=== PATIENT | female | born 1965 | race Caucasian/White ===

== ENCOUNTER → 2017-01-22 | Outpatient (CLI) | payer BC ==
--- NOTE | 2017-01-23 12:19 | MM ---
Reason for exam: screening (asymptomatic). Last mammogram was performed 6 years ago. History: Took hormonal contraceptives for 2 years. Physical Findings: A clinical breast exam by your physician is recommended on an annual basis and results should be correlated with mammographic findings. MG Screening Mammo w CAD Bilateral CC and MLO view(s) were taken. Prior study comparison: January 12, 2011, CAD bilateral diagnostic mammogram. The breast tissue is heterogeneously dense. This may lower the sensitivity of mammography. Benign calcifications bilaterally. No significant changes when compared with prior studies. ASSESSMENT: Benign, BI-RAD 2 RECOMMENDATION: Routine screening mammogram of both breasts in 1 year.
== END | disposition home or self-care (01) ==
LOC: RADMAMWWP 11:44
PROVIDERS: ATTEND Family Medicine
DX: Z12.31 Encounter for screening mammogram for malignant neoplasm of breast (principal); Z12.4 Encounter for screening for malignant neoplasm of cervix

== ENCOUNTER → 2017-01-26 | Outpatient (CLI) | payer BC ==
--- NOTE | 2017-01-26 09:28 | MR ---
EXAMINATION TYPE: MR lumbar spine wo con DATE OF EXAM: 01/26/2017 COMPARISON: 11/05/2013 HISTORY: 51-year-old female with pain in low back, buttocks, and left leg TECHNIQUE: Multiplanar, multisequence images of the lumbar spine were acquired. FINDINGS: There has been progression of multilevel degenerative disc disease as compared to 2013. There is grea ter degree of desiccation, disc space narrowing, and bulging disks throughout now with vacuum phenome non at multiple levels. There is associated severe edematous Modic type I endplate change particularly towards the right at L 2-L3 also new in the interval. A fatty matrix hemangioma within L2 vertebral body is stable. Mild het erogeneous marrow signal but otherwise without suspicious bone marrow replacement. Hypertrophic facet arthropathy also appears progressed from prior exam, greater towards the left. Mul tilevel ligamentum flavum thickening and progressive grade 1 retrolisthesis at L2-L3 with new grade 1 retrolisthesis at L1-L2. Conus medullaris is normal. Vertebral body heights are preserved. No prevertebral or paravertebral soft tissue abnormality seen. At T12-L1, no spinal canal or neuroforaminal stenosis. At L1-L2, there is diffuse disc bulge with facet arthropathy, new trace grade 1 retrolisthesis, and d iffuse disc bulge. There is slight impression on the ventral thecal sac but no significant spinal can al and neural foraminal stenosis. At L2-L3, there is slight increased grade 1 retrolisthesis with increasing diffuse disc bulge. Contin ued facet arthropathy and increased mild spinal canal stenosis. Disc material may impinge the lizeth ing left L3 nerve root. There is [id number] right neuroforaminal stenosis. At L3-L4, progressive degenerative disc disease with bulging disc, ligamentum flavum thickening, face t arthropathy, and prominent dorsal epidural fat. Changes result in moderate spinal canal stenosis wi th prominent abutment of the traversing left L4 nerve root. There is mild right greater than left samira roforaminal stenosis. However, disc material may abut the exiting right L3 nerve root. At L4-L5, diffuse disc bulge with ligamentum flavum thickening and facet arthropathy. There is increa sed mild spinal canal stenosis and similar mild left neuroforaminal stenosis. Disc material closely a pproaches and may abut the traversing left L5 nerve root. At L5-S1, diffuse disc bulge with hypertrophic facet arthropathy. No spinal canal stenosis. There is slight increased mild to moderate left neuroforaminal stenosis. IMPRESSION: 1. Progressive now moderate to advanced multilevel disc/endplate degenerative change as well as hyper trophic facet arthropathy. 2. There is new edematous Modic type I endplate change at L2-L3 with slight increased grade 1 retroli sthesis at this level and new grade 1 retrolisthesis at L1-L2. 3. Changes result in increased, now moderate, spinal canal stenosis at L3-L4 and mild at both L2-L3 a nd L4-L5. 4. Disc material at L2-L3, L3-L4, and L4-L5 closely approaches and may abut/impinge the traversing L3 , L4, and L5 nerve roots at their respective levels. 5. While there is only mild right neuroforaminal stenosis at L3-L4, disc material may contact the exi ting right L3 nerve root.
== END | disposition home or self-care (01) ==
LOC: RADMRIMAIN 08:07
PROVIDERS: ATTEND Nurse Practitioner Acute Care
DX: M48.06 Spinal stenosis, lumbar region (principal); M99.73 Connective tissue and disc stenosis of intervertebral foramina of lumbar region; M43.16 Spondylolisthesis, lumbar region; M47.816 Spondylosis without myelopathy or radiculopathy, lumbar region; M46.06 Spinal enthesopathy, lumbar region; Z88.2 Allergy status to sulfonamides
CPT/HCPCS: 72148

== ENCOUNTER → 2018-09-11 | Outpatient (CLI) | payer BC ==
--- NOTE | 2018-09-15 07:25 | MM ---
Reason for exam: screening (asymptomatic). Last mammogram was performed 1 year and 8 months ago. History: Took hormonal contraceptives for 2 years. Physical Findings: A clinical breast exam by your physician is recommended on an annual basis and results should be correlated with mammographic findings. MG Screening Mammo w CAD Bilateral CC and MLO view(s) were taken. Prior study comparison: January 22, 2017, bilateral MG screening mammo w CAD. January 12, 2011, CAD bilateral diagnostic mammogram. The breast tissue is heterogeneously dense. This may lower the sensitivity of mammography. There is a right upper outer quadrant mass at anterior middle depth with circumscribed boarders measuring 5mm. ASSESSMENT: Incomplete: need additional imaging evaluation, BI-RAD 0 RECOMMENDATION: Ultrasound of the right breast. (upper outer quadrant) [facility] will attempt to contact patient to return for ultrasound.
== END | disposition home or self-care (01) ==
LOC: RADMAMWWP 07:59
PROVIDERS: ATTEND Family Medicine
DX: Z12.31 Encounter for screening mammogram for malignant neoplasm of breast (principal)
CPT/HCPCS: 77067

== ENCOUNTER → 2018-09-18 | Outpatient (CLI) | payer BC ==
--- NOTE | 2018-09-18 16:42 | US ---
EXAMINATION TYPE: US pelvis complete transvag DATE OF EXAM: 09/18/2018 COMPARISON: NONE CLINICAL HISTORY: N94.1 Dyspareunia. TECHNIQUE: . Transabdominal sonographic images of the pelvis were acquired. Transvaginal sonographi c images were medically necessary to better assess the following anatomy: adnexa and endometrium Date of LMP: 5 years ago EXAM MEASUREMENTS: Uterus: 6.1 x 2.8 x2.1 cm Endometrial Stripe: 0.5 cm Right Ovary: 2.2 x 1.9 x 1.5 cm Left Ovary: Obscured by overlying bowel gas 1. Uterus: Anteverted hypoechoic area cervix 0.4 x 0.3 x 0.2 cm 2. Endometrium: wnl 3. Right Ovary: wnl lots of bowel loops 4. Left Ovary: Obscured by overlying bowel gas 5. Bilateral Adnexa: Obscured by overlying bowel gas 6. Posterior cul-de-sac: wnl IMPRESSION: Exam is limited. No significant abnormalities evident.
--- NOTE | 2018-09-19 09:27 | USB ---
Reason for exam: additional evaluation requested from abnormal screening. History: Took hormonal contraceptives for 2 years. Physical Findings: Nurse did not find any significant physical abnormalities on exam. US Breast Workup Limited RT Right limited breast ultrasound including focal area of concern, retroareolar and axilla demonstrates a 0.5 x 0.4 x 0.6cm mixed lesion at 10 o'clock. These results were verbally communicated with the patient and result sheet given to the patient on 09/18/18. ASSESSMENT: Suspicious, BI-RAD 4 RECOMMENDATION: Ultrasound core biopsy of the right breast. Called Dr. Dockery with mammographic findings and has scheduled an appointment for the patient for 11/05/18 at 1:[address] Frazier. Biopsy scheduled for 10/01/18 at 8:00. PRELIMINARY REPORT CALLED AND FAXED TO DR. FRAZIER ON 09/19/18.
== END ==
LOC: RADUSWWP 14:53
PROVIDERS: ATTEND Family Medicine
DX: R92.8 Other abnormal and inconclusive findings on diagnostic imaging of breast (principal); N94.10 Unspecified dyspareunia
CPT/HCPCS: 76830; 76856

== ENCOUNTER → 2018-10-01 | Day surgery (SDC) | payer BC ==
[2018-10-01 07:17] VITALS: RESP 16; BMI 22.7
[2018-10-01 09:20] VITALS: BP 124/75; PULSE 65; TEMP 97.7
--- NOTE | 2018-10-01 16:57 | USB ---
EXAMINATION TYPE: US biopsy breast VAD RT DATE OF EXAM: 10/01/2018 CLINICAL HISTORY: R92.8 ABN Mammogram. TECHNIQUE: Ultrasound guided core biopsy of right breast. COMPARISON: NONE FINDINGS: The procedure of ultrasound guided core biopsy was explained to the patient. Benefits, alternatives, and risks were discussed. An informed consent was then obtained. Timeout was performed. The patient was placed in supine positioning for imaging and for the procedure. The overlying skin was prepped and draped in usual sterile fashion. Lidocaine buffered with bicarbonate was used as anesthetic into the skin and subcutaneous tissue up to area of concern in the right breast. A bianka was made with surgical scalpel. Under ultrasound guidance, a 12-gauge vacuum assisted biopsy gun device was used to obtain 5 core samples. Following this, a biopsy clip was left at the site of the lesion. Lesion had a more cystic appearance on the current examination on the second cut appeared to spontaneously decompressed. The patient tolerated the procedure well without any immediate complication. The patient was kept in the radiology department for short stay after the procedure and then discharged home in stable condition. Postprocedure mammogram was obtained. A core marker is in place within the right breast. IMPRESSION: 1. Successful ultrasound-guided core biopsy of suspected complex cyst. Recommendations: 1. Recommendations are pending pathology results. Pathology Results: Benign RIGHT BREAST, TEN O'CLOCK, ULTRASOUND GUIDED CORE BIOPSY: Fat necrosis with associated calcifications, histiocytes, inflammation and fibrosis. Background fibrocystic changes. Negative for malignancy. Recommendation Follow up mammogram of the right breast in 6 months. REJI
--- NOTE | 2018-10-01 16:58 | MM ---
EXAMINATION TYPE: US biopsy breast VAD RT DATE OF EXAM: 10/01/2018 CLINICAL HISTORY: R92.8 ABN Mammogram. TECHNIQUE: Ultrasound guided core biopsy of right breast. COMPARISON: NONE FINDINGS: The procedure of ultrasound guided core biopsy was explained to the patient. Benefits, alt ernatives, and risks were discussed. An informed consent was then obtained. Timeout was performed. The patient was placed in supine positioning for imaging and for the procedure. The overlying skin w as prepped and draped in usual sterile fashion. Lidocaine buffered with bicarbonate was used as anes thetic into the skin and subcutaneous tissue up to area of concern in the right breast. A bianka was m ana rosa with surgical scalpel. Under ultrasound guidance, a 12-gauge vacuum assisted biopsy gun device was used to obtain 5 core ion ples. Following this, a biopsy clip was left at the site of the lesion. Lesion had a more cystic aleksandra earance on the current examination on the second cut appeared to spontaneously decompressed. The patient tolerated the procedure well without any immediate complication. The patient was kept in the radiology department for short stay after the procedure and then discharged home in stable condi tion. Postprocedure mammogram was obtained. A core marker is in place within the right breast. IMPRESSION: 1. Successful ultrasound-guided core biopsy of suspected complex cyst. Recommendations: 1. Recommendations are pending pathology results.
== END | disposition home or self-care (01) ==
LOC: RADUSWWP 07:02
PROVIDERS: ATTEND Surgery
DX: N60.31 Fibrosclerosis of right breast (principal)
CPT/HCPCS: 88305; 77065; 19083; A4648; J2001

== ENCOUNTER → 2018-10-16 | Outpatient (CLI) | payer BC ==
[2018-10-16 14:16] LABS: Basophils % (A) 0 %; Eosinophils # (A) 0.1 k/uL (0-0.7); Eosinophils % (A) 2 %; HCT 40.5 % (34.0-46.0); HGB 13.1 gm/dL (11.4-16.0); Lymphocytes # (A) 2.8 k/uL (1.0-4.8); Lymphocytes % (A) 54 %; MCH 30.6 pg (25.0-35.0); MCHC 32.4 g/dL (31.0-37.0); MCV 94.7 fL (80.0-100.0); Mean Platelet Volume 6.7; Monocytes # (A) 0.2 k/uL (0-1.0); Monocytes % (A) 4 %; Neutrophils # (A) 1.9 k/uL (1.3-7.7); Neutrophils % (A) 37 %; Platelet Count 215 k/uL (150-450); RBC 4.28 m/uL (3.80-5.40); RDW 12.7 % (11.5-15.5); WBC 5.1 k/uL (3.8-10.6)
[2018-10-16 19:37] LABS: Erythrocyte Sedimentation Rate 13 mm/hr (0-20)
== END | disposition home or self-care (01) ==
LOC: LABWHC1 13:34
PROVIDERS: ATTEND Psychiatry & Neurology Neurology
DX: M46.40 Discitis, unspecified, site unspecified (principal)
CPT/HCPCS: 36415; 85025; 85652; 86140

== ENCOUNTER → 2021-04-10 | Outpatient (CLI) | payer MEDICARE, OTHER | END | disposition home or self-care (01) | LOC: LABWHC1 13:05 | PROVIDERS: ATTEND Psychiatry & Neurology Neurology | DX: Z01.812 Encounter for preprocedural laboratory examination (principal); Z20.822 Contact with and (suspected) exposure to COVID-19 | CPT/HCPCS: U0003; C9803; U0005 ==

== ENCOUNTER 2023-04-02 23:38 | Observation (INO) | payer MEDICARE, OTHER ==
[2023-04-03] MEDS ORDERED: ASPIRIN 81 MG PO STA (00:29)
--- NOTE | 2023-04-03 00:30 | ED ---
General Adult HPI - General Chief complaint: Chest Pain Stated complaint: SOB, Heart Palpitations Time Seen by Provider: 04/02/23 23:49 Source: patient Mode of arrival: ambulatory Limitations: no limitations - History of Present Illness Initial comments: Dictation was produced using [employer] dictation software. please excuse any grammatical, word or spelling errors. Chief Complaint: 58-year-old female presents with chest pain shortness breath and palpitations History of Present Illness: Patient is a 58-year-old female she has no history of cardiac disease presents to the ER for several hours of chest pressure, shortness of breath and heart palpitations. She has no history of cardiac disease. She does however have family history of cardiac disease. She currently uses tobacco. States that her pain as a pressure to the substernal area. Nonradiating. No associated diaphoresis or nausea.. She reports that most of her symptoms resolved except for some mild chest pressure that is present during initial evaluation at the bedside. The ROS documented in this emergency department record has been reviewed and confirmed by me. Those systems with pertinent positive or negative responses have been documented in the HPI. All other systems are other negative and/or noncontributory. - Related Data Home Medications Medication Instructions Recorded Confirmed HYDROcodone/APAP 10-325MG [Holden 1 tab PO BID PRN 09/26/18 10/01/18 10-325] tiZANidine HCL [Zanaflex] 4 mg PO BID 10/01/18 10/01/18 Allergies Allergy/AdvReac Type Severity Reaction Status Date / Time No Known Allergies Allergy Verified 10/01/18 07:10 Review of Systems ROS Statement: Those systems with pertinent positive or pertinent negative responses have been documented in the HPI. ROS Other: All systems not noted in ROS Statement are negative. Past Medical History Past Medical History: No Reported History Additional Past Medical History / Comment(s): Chronic back pain, herniated discs History of Any Multi-Drug Resistant Organisms: None Reported Past Surgical History: Section, Orthopedic Surgery, Tonsillectomy, Tubal Ligation Additional Past Surgical History / Comment(s): Arthroscopic left shoulder surgery Past Anesthesia/Blood Transfusion Reactions: No Reported Reaction Past Psychological History: No Psychological Hx Reported Smoking Status: Current every day smoker Past Alcohol Use History: Rare Past Drug Use History: Marijuana General Exam - General Exam Comments Initial Comments: PHYSICAL EXAM: General Impression: Alert and oriented x3, not in acute distress HEENT: Normocephalic atraumatic, extra-ocular movements intact, pupils equal and reactive to light bilaterally, mucous membranes moist. Cardiovascular: Heart regular rate and rhythm Chest: Able to complete full sentences, no retractions, no tachypnea Abdomen: abdomen soft, non-tender, non-distended, no organomegaly Musculoskeletal: Pulses present and equal in all extremities, no peripheral edema Motor: no focal deficits noted Neurological: CN II-XII grossly intact, no focal motor or sensory deficits noted Skin: Intact with no visualized rashes Psych: Normal affect and mood Limitations: no limitations Course Vital Signs 04/02/23 04/03/23 04/03/23 23:40 00:30 01:00 Temperature 98.0 F Pulse Rate 114 H 79 78 Respiratory 16 18 16 Rate Blood Pressure 126/63 115/68 113/57 O2 Sat by Pulse 96 94 L 96 Oximetry 04/03/23 03:50 Temperature Pulse Rate 62 Respiratory 18 Rate Blood Pressure 100/69 O2 Sat by Pulse 96 Oximetry EKG Findings - EKG Comments: EKG Findings:: My EKG interpretation: Ventricular rate 97, sinus rhythm,. 164, QRS 72, QTC 402. No MA prolongation, no QTC prolongation, no ST or T-wave changes noted. Overall, this EKG is unremarkable Medical Decision Making - Medical Decision Making Was pt. sent in by a medical professional or institution (, PA, TREATING MACHINE OPERATOR, urgent care, hospital, or long term...) When possible be specific @ -No Did you speak to anyone other than the patient for history (EMS, parent, family, police, friend...)? What history was obtained from this source @ -No Did you review nursing and triage notes (agree or disagree)? Why? @ -I reviewed and agree with nursing and triage notes Were old charts reviewed (outside hosp., previous admission, EMS record, old EKG, old radiological studies, urgent care reports/EKG's, long term records)? Report findings @ -No old charts were reviewed Differential Diagnosis (chest pain, altered mental status, abdominal pain women, abdominal pain men, vaginal bleeding, musculoskeletal, weakness, fever, dyspnea, syncope, headache, dizziness, GI bleed, back pain, seizure, CVA, palpatations, mental health)? @ -Differential Chest Pain: Stable Angina, Unstable Angina, STEMI, NSTEMI Aortic Dissection, Pneumothorax, Musculoskeletal, Esophageal Spasm GERD, Cholecystitis, Pancreatitis, Zoster, this is not meant to be an all-inclusive list. EKG interpreted by me (3pts min.). @ -See above X-rays interpreted by me (1pt min.). @ -see above CT interpreted by me (1pt min.). @ -CT angiography of the chest shows No pulmonary embolism U/S interpreted by me (1pt. min.). @ -None done What testing was considered but not performed or refused? (CT, X-rays, U/S, labs)? Why? @ -None What meds were considered but not given or refused? Why? @ -None Did you discuss the management of the patient with other professionals (professionals i.e. , PA, TREATING MACHINE OPERATOR, lab, RT, psych nurse, social services analyst, acquisition professional, teacher, radio officer, nurse case management)? Give summary @ -Case discussed with hospitalist for admission Was smoking cessation discussed for >3mins.? @ -No Was critical care preformed (if so, how long)? @ -yes, 33 minutes Were there social determinants of health that impacted care today? How? (Homelessness, low income, unemployed, alcoholism, drug addiction, transportation, low edu. Level, literacy, decrease access to med. care, nursing home, rehab)? @ -No Was there de-escalation of care discussed even if they declined (Discuss DNR or withdrawal of care, Hospice)? DNR status @ -No What co-morbidities impacted this encounter? (DM, HTN, Smoking, COPD, CAD, Cancer, CVA, ARF, Chemo, Hep., AIDS, mental health diagnosis, sleep apnea, morbid obesity)? @ -None Was patient admitted / discharged? Hospital course, mention meds given and route, prescriptions, significant lab abnormalities, going to OR and other pertinent info. @ -Year-old female presents to the emergency department for chest pain. Symptoms are concerning for acute coronary syndrome. Vital signs upon arrival are within acceptable limits. Patient reports that her symptoms are improving. EKG is unremarkable. Troponin slightly elevated 0.024. Clinical presentation concerning for ACS. D-dimer is elevated 0.95. No large vessel pulmonary embolism. Patient aspirin and started on heparin. Undiagnosed new problem with uncertain prognosis? @ -No Drug Therapy requiring intensive monitoring for toxicity (Heparin, Nitro, Insuli n, Cardizem)? @ -No Were any procedures done? @ -No Diagnosis/symptom? Acute, or Chronic, or Acute on Chronic? Uncomplicated (without systemic symptoms) or Complicated (systemic symptoms)? @ -Acute coronary syndrome Side effects of treatment? @ -No Exacerbation, Progression, or Severe Exacerbation? @ -No Poses a threat to life or bodily function? How? (Chest pain, [place], [place], pneumonia, PE, COPD, DKA, ARF, appy, cholecystitis, CVA, Diverticulitis, Homicidal, Suicidal, threat to staff... and all critical care pts) @ -yes - Lab Data Result diagrams: 04/03/23 00:14 04/03/23 00:14 Lab Results 04/03/23 04/03/23 04/03/23 Range/Units 00:14 00:14 00:14 WBC 6.1 (3.8-10.6) k/uL RBC 4.31 (3.80-5.40) m/uL Hgb 13.3 (11.4-16.0) gm/dL Hct 40.6 (34.0-46.0) % MCV 94.1 (80.0-100.0) fL MCH 30.8 (25.0-35.0) pg MCHC 32.8 (31.0-37.0) g/dL RDW 12.2 (11.5-15.5) % Plt Count 185 (150-450) k/uL MPV 8.2 Neutrophils % 41 % Lymphocytes % 49 % Monocytes % 6 % Eosinophils % 2 % Basophils % 0 % Neutrophils # 2.5 (1.3-7.7) k/uL Lymphocytes # 3.0 (1.0-4.8) k/uL Monocytes # 0.3 (0-1.0) k/uL Eosinophils # 0.1 (0-0.7) k/uL Basophils # 0.0 (0-0.2) k/uL PT 10.4 (10.0-12.5) sec INR 0.9 (<1.2) APTT 23.5 (22.0-30.0) sec D-Dimer 0.95 H (<0.60) mg/L FEU Sodium 137 (137-145) mmol/L Potassium 4.6 (3.5-5.1) mmol/L Chloride 102 (98-107) mmol/L Carbon Dioxide 25 (22-30) mmol/L Anion Gap 10 mmol/L BUN 18 H (7-17) mg/dL Creatinine 0.63 (0.52-1.04) mg/dL Est GFR (CKD-EPI)AfAm >90 (>60 ml/min/1.73 sqM) Est GFR (CKD-EPI)NonAf >90 (>60 ml/min/1.73 sqM) Glucose 110 H (74-99) mg/dL Calcium 9.1 (8.4-10.2) mg/dL Total Bilirubin 1.0 (0.2-1.3) mg/dL AST 43 H (14-36) U/L ALT 26 (4-34) U/L Alkaline Phosphatase 54 (38-126) U/L Troponin I (0.000-0.034) ng/mL NT-Pro-B Natriuret Pep 24 pg/mL Total Protein 7.5 (6.3-8.2) g/dL Albumin 4.5 (3.5-5.0) g/dL TSH 1.480 (0.465-4.680) mIU/L 04/03/23 Range/Units 00:14 WBC (3.8-10.6) k/uL RBC (3.80-5.40) m/uL Hgb (11.4-16.0) gm/dL Hct (34.0-46.0) % MCV (80.0-100.0) fL MCH (25.0-35.0) pg MCHC (31.0-37.0) g/dL RDW (11.5-15.5) % Plt Count (150-450) k/uL MPV Neutrophils % % Lymphocytes % % Monocytes % % Eosinophils % % Basophils % % Neutrophils # (1.3-7.7) k/uL Lymphocytes # (1.0-4.8) k/uL Monocytes # (0-1.0) k/uL Eosinophils # (0-0.7) k/uL Basophils # (0-0.2) k/uL PT (10.0-12.5) sec INR (<1.2) APTT (22.0-30.0) sec D-Dimer (<0.60) mg/L FEU Sodium (137-145) mmol/L Potassium (3.5-5.1) mmol/L Chloride (98-107) mmol/L Carbon Dioxide (22-30) mmol/L Anion Gap mmol/L BUN (7-17) mg/dL Creatinine (0.52-1.04) mg/dL Est GFR (CKD-EPI)AfAm (>60 ml/min/1.73 sqM) Est GFR (CKD-EPI)NonAf (>60 ml/min/1.73 sqM) Glucose (74-99) mg/dL Calcium (8.4-10.2) mg/dL Total Bilirubin (0.2-1.3) mg/dL AST (14-36) U/L ALT (4-34) U/L Alkaline Phosphatase (38-126) U/L Troponin I 0.024 (0.000-0.034) ng/mL NT-Pro-B Natriuret Pep pg/mL Total Protein (6.3-8.2) g/dL Albumin (3.5-5.0) g/dL TSH (0.465-4.680) mIU/L Disposition Clinical Impression: ACS (acute coronary syndrome) Disposition: ADMITTED IP TO THIS HOSP Condition: Serious Decision Time: 03:45
[2023-04-03 01:15] LABS: Basophils % (A) 0 %; Eosinophils # (A) 0.1 k/uL (0-0.7); Eosinophils % (A) 2 %; HCT 40.6 % (34.0-46.0); HGB 13.3 gm/dL (11.4-16.0); Lymphocytes % (A) 49 %; MCH 30.8 pg (25.0-35.0); MCHC 32.8 g/dL (31.0-37.0); MCV 94.1 fL (80.0-100.0); Mean Platelet Volume 8.2; Monocytes # (A) 0.3 k/uL (0-1.0); Monocytes % (A) 6 %; Neutrophils # (A) 2.5 k/uL (1.3-7.7); Neutrophils % (A) 41 %; Platelet Count 185 k/uL (150-450); RBC 4.31 m/uL (3.80-5.40); RDW 12.2 % (11.5-15.5); WBC 6.1 k/uL (3.8-10.6)
[2023-04-03 01:30] LABS: ALT 26 U/L (4-34); African American GFR (CKD) >90 (>60 ml/min/1.73 sqM); Anion Gap 10 mmol/L; Blood Urea Nitrogen 18 mg/dL (7-17); Calcium 9.1 mg/dL (8.4-10.2); Carbon Dioxide 25 mmol/L (22-30); Chloride 102 mmol/L (98-107); Glucose 110 mg/dL (74-99); Non-African American GFR(CKD) >90 (>60 ml/min/1.73 sqM); Sodium 137 mmol/L (137-145)
[2023-04-03 01:39] LABS: NT-Pro-B-Type Natriuretic Pept 24 pg/mL
[2023-04-03 01:44] LABS: AST 43 U/L (14-36); Albumin 4.5 g/dL (3.5-5.0); Alkaline Phosphatase 54 U/L (38-126); Potassium 4.6 mmol/L (3.5-5.1); Total Protein 7.5 g/dL (6.3-8.2)
--- NOTE | 2023-04-03 01:54 | XR ---
EXAM: XR Chest, 2 Views CLINICAL HISTORY: ITS.REASON XR Reason: palpitations TECHNIQUE: Frontal and lateral views of the chest. COMPARISON: No relevant prior studies available. FINDINGS: Lungs: Unremarkable. No consolidation. Pleural space: Unremarkable. No pneumothorax. Heart: Unremarkable. No cardiomegaly. Mediastinum: Unremarkable. Bones/joints: Unremarkable. IMPRESSION: Normal chest x-rays.
[2023-04-03 02:11] LABS: INR 0.9 (<1.2); Partial Thromboplastin Time 23.5 sec (22.0-30.0); Prothrombin Time 10.4 sec (10.0-12.5)
[2023-04-03] MEDS ORDERED: HEPARIN SODIUM 1,000 UN/ML (10ML VL) IV ONE (03:41)
[2023-04-03] MEDS ORDERED: HEPARIN SODIUM 1,000 UN/ML (10ML VL) IV PRN (03:41)
[2023-04-03] MEDS ORDERED: HEPARIN SOD,PORK IN 0.45% NACL 25,000 UNIT in 0.45% NACL 1 250ML.BAG IV SCH (03:45)
[2023-04-03] MEDS ORDERED: NITROGLYCERIN SL TABS 0.4 MG TAB SUBLINGUAL PRN (04:24)
--- NOTE | 2023-04-03 06:11 | CT ---
EXAM: CT Angiography Chest With Intravenous Contrast CLINICAL HISTORY: ITS.REASON CT Reason: positive D-dimer TECHNIQUE: Axial computed tomographic angiography images of the chest with intravenous contrast. CTDI is 15.8 mGy and DLP is 272.6 mGy-cm. This CT exam was performed using one or more of the following dose reduction techniques: automated exposure control, adjustment of the mA and/or kV according to patient size, and/or use of iterative reconstruction technique. MIP reconstructed images were created and reviewed. COMPARISON: No relevant prior studies available. FINDINGS: Pulmonary arteries: Unremarkable. No pulmonary embolism. Aorta: No acute findings. No thoracic aortic aneurysm. Lungs: Unremarkable. No mass. No consolidation. Pleural space: Unremarkable. No significant effusion. No pneumothorax. Heart: Unremarkable. No cardiomegaly. No significant pericardial effusion. No evidence of RV dysfunction. Bones/joints: No acute fracture. No dislocation. Soft tissues: Unremarkable. Lymph nodes: Unremarkable. No enlarged lymph nodes. IMPRESSION: Normal chest CTA. No pulmonary embolism.
--- NOTE | 2023-04-03 06:39 | P.HPIM ---
History of Present Illness H&P Date: 04/03/23 Chief Complaint: Chest pain 58-year-old female with no significant past medical history except for chronic pain issues Patient coming in with sudden onset of chest pain that happened while resting she describes it as sudden onset tightness heaviness that she felt retrostern ally rated 5 out of 10 in severity with associated with some heavy breathing and palpitations denies any sweating profusely sweating nausea vomiting. She denies any cardiac history in the past denies any cardiac workup in the past. She reports that she has family history of heart disease She denies any recent travel her hospital stay denies any history of blood clots. Denies any coughing denies any hemoptysis she denies any respiratory symptoms. She denies any abdominal pain nausea vomiting changes in bowel or urinary habits Overall she claims to be in good health her limitation is her chronic back pain she takes it easy she does some craftwork but otherwise she doesn't walk long distances and shouldn't she does not do any heavy chores due to limitations from her back pain Patient admits to tobacco smoking denies any illicit drugs or alcohol She reports noticing some leg swelling off and on over the past few days currently she has no swelling at time of my interview and evaluation review of systems Pertinent positives as noted in HPI. All other systems were reviewed and are negative on exam Constitutional: No acute distress, conversant, pleasant Eyes: Anicteric sclerae, moist conjunctiva, Pupils equal round reactive to light ENMT: NC/AT Oropharynx clear, no erythema, or exudates Neck: Supple, no masses, or JVD No carotid bruits No thyromegaly Lungs: Clear to auscultation Clear to percussion Normal respiratory effort, no accessory muscle use Cardiovascular: Heart regular in rate and rhythm, No murmurs, gallops, or rubs No peripheral edema Abdominal: Soft Nontender, no guarding, rebound or rigidity Abdomen moving with respiration Normoactive bowel sounds No hepatomegaly, No splenomegaly No palpable mass No abdominal wall hernia noted Extremities: No digital cyanosis No clubbing Pedal pulses intact and symmetrical Radial pulses intact and symmetrical No calf tenderness Psychiatric: Alert and oriented to person, place and time Appropriate affect fair judgement Neuro Muscles Strength 5/5 in all 4 extremities Sensation to light touch grossly present throughout Cranial nerves II-XII grossly intact Lymphatics: no palpable cervical or supraclavicular lymph nodes Assessment and plan 58-year-old female with no significant past medical history coming in for sudden onset chest pain I discussed the case with the ED doctor I accepted the admissi on for atypical chest pain to rule out acute coronary syndrome with anticipated length of stay less than 2 midnights Atypical chest pain rule out acute coronary syndrome Troponins -0.04 D-dimer slightly elevated 0.9 CTA of the chest showed no acute PE EKG showed normal sinus rhythm Patient was started with heparin drip in the ED --> discontinue Continue with aspirin and statin Check lipid profile TSH unremarkable 1.48 Blood work overall unremarkable white count 6.1 hemoglobin 13.3 Renal function unremarkable sodium 137 potassium 4.6 BUN 18 creatinine 0.6 DVT prophylaxis heparin subcu 3 times a day Full code Past Medical History Past Medical History: No Reported History Additional Past Medical History / Comment(s): Chronic back pain, herniated discs History of Any Multi-Drug Resistant Organisms: None Reported Past Surgical History: Section, Orthopedic Surgery, Tonsillectomy, Tubal Ligation Additional Past Surgical History / Comment(s): Arthroscopic left shoulder surgery Past Anesthesia/Blood Transfusion Reactions: No Reported Reaction Past Psychological History: No Psychological Hx Reported Smoking Status: Current every day smoker Past Alcohol Use History: Rare Past Drug Use History: Marijuana Medications and Allergies Home Medications Medication Instructions Recorded Confirmed Type HYDROcodone/APAP 10-325MG [[place] 1 tab PO BID PRN 09/26/18 10/01/18 History 10-325] tiZANidine HCL [Zanaflex] 4 mg PO BID 10/01/18 10/01/18 History Allergies Allergy/AdvReac Type Severity Reaction Status Date / Time No Known Allergies Allergy Verified 10/01/18 07:10 Physical Exam Vitals: Vital Signs Temp Pulse Resp BP Pulse Ox 04/03/23 03:50 62 18 100/69 96 04/03/23 01:00 78 16 113/57 96 04/03/23 00:30 79 18 115/68 94 L 04/02/23 23:40 98.0 F 114 H 16 126/63 96 Intake and Output 04/02/23 04/02/23 04/03/23 14:59 22:59 06:59 Other: Weight 70.76 kg Results CBC & Chem 7: 04/03/23 00:14 04/03/23 00:14 Labs: Abnormal Lab Results - Last 24 Hours (Table) 04/03/23 04/03/23 Range/Units 00:14 00:14 D-Dimer 0.95 H (<0.60) mg/L FEU BUN 18 H (7-17) mg/dL Glucose 110 H (74-99) mg/dL AST 43 H (14-36) U/L
[2023-04-03] MEDS ORDERED: SODIUM CHLORIDE 0.9% 1,000 ML IV SCH (06:45)
[2023-04-03] MEDS ORDERED: HEPARIN SODIUM,PORCINE 5,000 UNIT/ML 1 ML VIAL SQ SCH (08:00)
[2023-04-03] MEDS ORDERED: ATORVASTATIN 20 MG TAB PO SCH (09:00)
[2023-04-03] MEDS ORDERED: ASPIRIN 81 MG PO SCH (09:00)
--- NOTE | 2023-04-03 09:30 | P.CRDCN ---
History of Present Illness History of present illness: HISTORY OF PRESENT ILLNESS: This is a 58-year-old female with a past medical history significant for chronic back pain with chronic opioid use. 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 We have been asked to see the patient in consultation for chest pain. Patient examined at the bedside. Patient states yesterday while she was at home she began to have chest pain and palpitations. She states that it started around 7 PM last night but she waited a few hours before coming to the hospital. She reports that she initially began having palpitations and then chest pain. She does report having palpitations in the past. She states the pain was not worsened with exertion. She reports a history of back problems and states she is not overly active on a normal basis. She also reports having some lower extremity swelling in the past couple weeks which is new for her. She denies a history of hypertension, hyperlipidemia, or diabetes. She is a current smoker and smokes 1 pack per day. * EKG reveals sinus mechanism with no signs of acute ischemia * Chest xray negative for acute process * Laboratory data: WBC 6.1. Hemoglobin 13.3. Platelet count 185. D-dimer 0.95. Sodium 137. Potassium 4.6. BUN 18. Creatinine 0.63. Troponin negative 1. TSH 1.480. * Current home cardiac medications include none * No previous echocardiogram or cardiac catheterization available for review REVIEW OF SYSTEMS: At the time of my exam: CONSTITUTIONAL: Denies fever or chills. HEENT: Denies blurred vision, vision changes, or eye pain. Denies hemoptysis CARDIOVASCULAR: Denies chest pain. Denies orthopnea. Denies PND. Denies palpitat ions RESPIRATORY: Denies shortness of breath. GASTROINTESTINAL: Denies abdominal pain. Denies nausea or vomiting. HEMATOLOGIC: Denies bleeding disorders. GENITOURINARY: Denies any blood in urine. SKIN: Denies pruitis. Denies rash. PHYSICAL EXAM: VITAL SIGNS: Reviewed. GENERAL: Well-developed in no acute distress. HEENT: Head is normocephalic. Pupils are equal, round. Sclerae anicteric. Mucous membranes of the mouth are moist. Neck supple. No JVD or thyromegaly LUNGS: Respirations even and unlabored. Lungs essentially clear to auscultation bilaterally. HEART: Regular rate and rhythm. S1 and S2 heard. ABDOMEN: Soft. Nondistended. Nontender. EXTREMITIES: Normal range of motion. No clubbing or cyanosis. Peripheral pulses intact. No lower extremity edema NEUROLOGIC: Awake and alert. Oriented x 3. ASSESSMENT: Palpitations Chest pain, troponins negative 1 Chronic back pain Chronic opioid use Nicotine dependence, patient smokes 1 pack per day PLAN: Obtain additional troponin Obtain 2-D echo to assess cardiac structure and function Decrease aspirin to 81 mg daily Patient started on atorvastatin 20 mg per internal medicine Obtain hemoglobin A1c and lipid panel If second troponin is negative, patient will undergo dobutamine stress testing today Further recommendations pending patient's course Nurse practitioner note has been reviewed by physician. Signing provider agrees with the documented findings, assessment, and plan of care. Past Medical History Past Medical History: No Reported History Additional Past Medical History / Comment(s): Chronic back pain, herniated discs History of Any Multi-Drug Resistant Organisms: None Reported Past Surgical History: Section, Orthopedic Surgery, Tonsillectomy, Tubal Ligation Additional Past Surgical History / Comment(s): Arthroscopic left shoulder surgery Past Anesthesia/Blood Transfusion Reactions: No Reported Reaction Past Psychological History: No Psychological Hx Reported Smoking Status: Current every day smoker Past Alcohol Use History: Rare Past Drug Use History: Marijuana Medications and Allergies Home Medications Medication Instructions Recorded Confirmed Type HYDROcodone/APAP 10-325MG [[place] 1 tab PO BID PRN 09/26/18 04/03/23 History 10-325] tiZANidine HCL [Zanaflex] 4 mg PO BID 10/01/18 04/03/23 History Morphine Pain Pump 1 dose INTRATHECA DIRECTED 04/03/23 04/03/23 History Allergies Allergy/AdvReac Type Severity Reaction Status Date / Time No Known Allergies Allergy Verified 04/03/23 08:10 Physical Exam Vitals: Vital Signs Temp Pulse Resp BP Pulse Ox 04/03/23 03:50 62 18 100/69 96 04/03/23 01:00 78 16 113/57 96 04/03/23 00:30 79 18 115/68 94 L 04/02/23 23:40 98.0 F 114 H 16 126/63 96 Intake and Output 04/02/23 04/03/23 04/03/23 22:59 06:59 14:59 Other: Weight 70.76 kg Results 04/03/23 00:14 04/03/23 00:14 Cardiac Enzymes 04/03/23 04/03/23 Range/Units 00:14 00:14 AST 43 H (14-36) U/L Troponin I 0.024 (0.000-0.034) ng/mL Coagulation 04/03/23 Range/Units 00:14 PT 10.4 (10.0-12.5) sec APTT 23.5 (22.0-30.0) sec CBC 04/03/23 Range/Units 00:14 WBC 6.1 (3.8-10.6) k/uL RBC 4.31 (3.80-5.40) m/uL Hgb 13.3 (11.4-16.0) gm/dL Hct 40.6 (34.0-46.0) % Plt Count 185 (150-450) k/uL Comprehensive Metabolic Panel 04/03/23 Range/Units 00:14 Sodium 137 (137-145) mmol/L Potassium 4.6 (3.5-5.1) mmol/L Chloride 102 (98-107) mmol/L Carbon Dioxide 25 (22-30) mmol/L BUN 18 H (7-17) mg/dL Creatinine 0.63 (0.52-1.04) mg/dL Glucose 110 H (74-99) mg/dL Calcium 9.1 (8.4-10.2) mg/dL AST 43 H (14-36) U/L ALT 26 (4-34) U/L Alkaline Phosphatase 54 (38-126) U/L Total Protein 7.5 (6.3-8.2) g/dL Albumin 4.5 (3.5-5.0) g/dL Current Medications Generic Name Dose Route Start Last Admin Trade Name Freq PRN Reason Stop Dose Admin Aspirin 81 mg 04/03/23 08:30 Aspirin 325 Mg Tab PO DAILY [facility] Atorvastatin Calcium 20 mg 04/03/23 09:00 Atorvastatin 20 Mg Tab PO DAILY [facility] Heparin Sodium (Porcine) 5,000 unit 04/03/23 08:00 Heparin Sodium,Porcine 5,000 Unit/Ml 1 Ml Vial SQ Q8HR [facility] Sodium Chloride 1,000 mls @ 75 mls/hr 04/03/23 06:45 Saline 0.9% IV .[id number] [facility] Nitroglycerin 0.4 mg 10/18/23 04:24 Nitroglycerin Sl Tabs 0.4 Mg Tab SUBLINGUAL Q5M PRN Chest Pain Intake and Output 04/02/23 04/03/23 04/03/23 22:59 06:59 14:59 Other: Weight 70.76 kg 04/03/23 00:14 04/03/23 00:14
[2023-04-03] MEDS ORDERED: DOBUTamine DRIP for NUC MED 500 MG in DEXTROSE/WATER 1 250ML.BAG IV PRN (09:53)
[2023-04-03] MEDS ORDERED: DOBUTamine DRIP for NUC MED 500 MG/250 ML BAG IV ONE (11:40)
--- NOTE | 2023-04-03 12:10 | CA ---
Dobutamine Stress Echocardiogram Report Yoli De Leon Age: 58 Gender: F : 1965 Exam Date: 04/03/2023 11:32 Exam Location: [place] Stress Ordering Physician: Selin Luo Referring Physician: [id number] Caretaker: Mohit Huitron Technologist: Ht (in): 67 Wt (lb): 156 Procedure CPT: Indication: CP ICD-9 Codes: Rhythm: Patient History: Cardiac Medications: PAIN MED,,,,, Medications in past 24 hours: Contrast: N/A Total Dose (mL): Stress Results Protocol: Dobutamine Peak Dose (???g/kg/min): 30 Duration (min:sec): Atropine:(mg) None Target HR: 136 Double Product: Resting HR: 80 Resting BP: 109 / 64 Peak HR: 146 Peak BP: 136 / 70 Max Predicted HR: 160 91 % Max Predicted HR Stress Summary: BP Response: Reason for Termination: Target HR Cardiac Symptoms: NO SYMPTOMS ECG Analysis Resting EKG: Stress EKG: Arrhythmia: Echo Analysis Base Echo Analysis: Low Echo Anaylsis: Peak Echo Analysis: Recovery Echo: MEASUREMENTS (Male/Female) Normal Values CONCLUSIONS No ECG or echocardiographic evidence for ischemia during dobutamine stress testing Patient had PVCs throughout No nonsustained VT Dr. Silviano Smart MD (Electronically Signed) Final Date: 03 April 2023 12:09
--- NOTE | 2023-04-03 14:38 | P.DS ---
Providers Date of admission: 04/03/23 04:24 Expected date of discharge: 04/03/23 Attending physician: Estefanía [place] MD Consults: 04/03/23 04:24 Consult Physician Urgent Consulting Provider: Erick Espinal Consult Reason/Comments: acs Do you want consulting provider notified?: Yes Primary care physician: Papito Dockery [facility] Course: Atypical Chest Pain Chronic Back Pain 58-year-old female with no significant past medical history coming in for sudden onset chest pain. Pt was evaluated in the ER and was found to have no evidence of ischemia on EKG. Pt admitted to observation for chest pain, she was seen and cleared by cardiology. Dobutamine stress echo was negatie. CTA of the chest negative for PE. Troponins were negative. TSH unremarkable. Pt discharged with PCP f/u. Gen: awake, alert HEENT: normocephalic, atraumatic, good hearing acuity, moist mucous membranes Resp: good air exchange, breathing comfortably with no accessory muscle use CVS: good distal perfusion x 4, GI: soft, NTTP, ND : no SPT, no CVAT, fischer catheter not present MSK: no pitting edema, no clubbing Neuro: non-focal, moving all extremities Psych: cooperative, euthymic mood Patient Condition at Discharge: Good Plan - Discharge Summary New Discharge Prescriptions: Continue HYDROcodone/APAP 10-325MG [[place] 10-325] 1 tab PO BID PRN PRN Reason: Pain tiZANidine HCL [Zanaflex] 4 mg PO BID Morphine Pain Pump 1 dose INTRATHECA DIRECTED Discharge Medication List HYDROcodone/APAP 10-325MG [[place] 10-325] 1 tab PO BID PRN 09/26/18 [History] tiZANidine HCL [Zanaflex] 4 mg PO BID 10/01/18 [History] Morphine Pain Pump 1 dose INTRATHECA DIRECTED 04/03/23 [History] Follow up Appointment(s)/Referral(s): Papito Dockery DO [Primary Care Provider] - 1-2 days Discharge Disposition: HOME SELF-CARE
[2023-04-03 15:43] VITALS: BP 100/58; PULSE 74; RESP 16; TEMP 98.3
[2023-04-04] MEDS ORDERED: ASPIRIN 325 MG TAB PO SCH (09:00)
--- NOTE | 2023-04-04 09:00 | CA ---
Transthoracic Echo Report Name: Yoli De Leon Age: 58 Gender: F : 1965 Exam Date: 04/03/2023 11:59 Exam Location: [place] [facility] Ht (in): 67 Wt (lb): 156 Ordering Physician: Selin Luo Attending/Referring Phys: [id number], Valerio Personal Loan Specialist Katrin Fung [facility] Procedure CPT: Indications: CP Cardiac Hx: Technical Quality: Fair Contrast 1: Total Dose (mL): Contrast 2: Total Dose (mL): MEASUREMENTS (Male / Female) Normal Values 2D ECHO LV Diastolic Diameter PLAX 4.7 cm 4.2 - 5.9 / 3.9 - 5.3 cm LV Systolic Diameter PLAX 3.1 cm IVS Diastolic Thickness 0.8 cm 0.6 - 1.0 / 0.6 - 0.9 cm LVPW Diastolic Thickness 0.7 cm 0.6 - 1.0 / 0.6 - 0.9 cm LV Relative Wall Thickness 0.3 M-MODE Aortic Root Diameter MM 2.9 cm LA Systolic Diameter MM 3.1 cm LA Ao Ratio MM 1.0 AV Cusp Separation MM 2.0 cm DOPPLER AV Peak Velocity 142.2 cm/s AV Peak Gradient 8.1 mmHg AV Mean Velocity 84.7 cm/s AV Mean Gradient 3.5 mmHg AV Velocity Time Integral 26.1 cm LVOT Peak Velocity 119.0 cm/s LVOT Peak Gradient 5.7 mmHg LVOT Velocity Time Integral 22.4 cm Mitral E Point Velocity 81.0 cm/s Mitral A Point Velocity 92.3 cm/s Mitral E to A Ratio 0.9 MV Deceleration Time 144.2 ms LV E' Lateral Velocity 14.0 cm/s Mitral E to LV E' Lateral Ratio 5.8 LV E' Septal Velocity 13.0 cm/s Mitral E to LV E' Septal Ratio 6.2 TR Peak Velocity 191.6 cm/s TR Peak Gradient 14.7 mmHg Right Atrial Pressure 3.0 mmHg Pulmonary Artery Systolic Pressu 17.7 mmHg Right Ventricular Systolic Press 17.7 mmHg FINDINGS Left Ventricle Left ventricular wall thickness normal. Left ventricular cavity size normal. Normal left ventricular systolic function with no obvious regional wall motion abnormalities. Left ventricular ejection fraction is estimated at 55-60%. Right Ventricle Upper normal right ventricular size. Right Atrium Normal right atrial size. Left Atrium Normal left atrial size. Mitral Valve Structurally normal mitral valve. Trace mitral regurgitation. Aortic Valve Trileaflet aortic valve. No aortic valve stenosis or regurgitation. Tricuspid Valve Structurally normal tricuspid valve. Trace tricuspid regurgitation. Pulmonic Valve Pulmonic valve not well visualized. Pericardium No pericardial effusion. Aorta Normal size aortic root. CONCLUSIONS Normal LV size and systolic function Previewed by: Dr. Silviano Smart MD (Electronically Signed) Final Date: 04 April 2023 08:59
== END 2023-04-03 15:26 | disposition home or self-care (01) ==
LOC: EC 23:38 → INTOOBSV 04-03 04:24 → 3SCARD 04-03 04:24 → 6NMEDSUR 04-03 12:42 → UNDODISIN 04-03 15:26
PROVIDERS: ADMIT Internal Medicine; ATTEND Internal Medicine
DX: R07.89 Other chest pain (principal); R00.2 Palpitations; G89.29 Other chronic pain; M54.9 Dorsalgia, unspecified; F11.10 Opioid abuse, uncomplicated; F17.200 Nicotine dependence, unspecified, uncomplicated; Z79.899 Other long term (current) drug therapy
CPT/HCPCS: 96376; 96365; 96366; 96372; 99285; 36415; 93005 ×2; 93306; 93351; 85379; 83880; 80053; 84443; 84484; 85025; 85610; 85730; 83036; 71046; 71275; G0378; J1250; J1644 ×3; Q9967; 99291